=== PATIENT | female | born 1970 | race Caucasian/White ===

== ENCOUNTER 2019-06-02 06:31 | Day surgery (SDC) | payer OTHER ==
[~2019-06-02] VITALS: Ht 165.1 cm; Wt 104.8 kg
[2019-06-02] MEDS ORDERED: LIDOCAINE 2% 100 MG/5 ML UJET TP ONE (10:01)
[2019-06-02] MEDS ORDERED: fentaNYL 0.05 MG/ML VIAL ONE (10:01)
== END 2019-06-02 11:20 | disposition home or self-care (01) ==
LOC: MOR 06:31 → MTU 06:57 → MOR 11:20
PROVIDERS: ATTEND Internal Medicine Gastroenterology
DX: Z12.11 Encounter for screening for malignant neoplasm of colon (principal); K64.8 Other hemorrhoids; E66.01 Morbid (severe) obesity due to excess calories; Z98.84 Bariatric surgery status; Z90.710 Acquired absence of both cervix and uterus; Z80.0 Family history of malignant neoplasm of digestive organs; Z88.5 Allergy status to narcotic agent; Z68.41 Body mass index [BMI] 40.0-44.9, adult
CPT/HCPCS: 45378; J3010